=== PATIENT | male | born 1990 | race Two or more races ===

== ENCOUNTER 2018-08-19 08:46 | Emergency (ER) | payer SELFPAY | END 2018-08-19 12:27 | disposition home or self-care (01) | LOC: FTE 08:46 | DX: S80.211A Abrasion, right knee, initial encounter (principal); S80.212A Abrasion, left knee, initial encounter; S90.512A Abrasion, left ankle, initial encounter; S90.511A Abrasion, right ankle, initial encounter; S70.212A Abrasion, left hip, initial encounter; S20.419A Abrasion of unspecified back wall of thorax, initial encounter; S50.312A Abrasion of left elbow, initial encounter; V29.49XA Motorcycle driver injured in collision with other motor vehicles in traffic accident, initial encounter | CPT/HCPCS: 99283 ==